=== PATIENT | female | born 1950 | race Caucasian/White ===

== ENCOUNTER 2024-07-31 12:59 | Emergency (ER) | payer MEDICARE ==
[~2024-07-31] VITALS: Ht 170.2 cm; Wt 96.2 kg
--- NOTE | 2024-07-31 14:33 | ERN ---
General Chief Complaint: Mechanical Fall Stated Complaint: FELL, POSSIBLE BROKEN TAILBONE Time Seen by MD: 13:15 Time Seen by Midlevel: 13:15 Source: patient History of Present Illness Initial Comments 74-year-old female presents to the ED for evaluation of coccyx pain onset 9 days ago. Patient reports she fell and landed on her coccyx and is concerned for possible broken tailbone. Patients specifically denies any focal weakness to bilateral lower extremities. Denies urinary/bowel incontinence. Allergies: Coded Allergies: No Known Allergies (Unverified Allergy, Unknown, 07/31/24) Past Medical History Past Medical History: COPD, High Cholesterol, Hypertension Past Surgical History: Other Surgical History Other: HIP, BACK , WRIST, ANKLE ROS Dictation Constitutional: For fall Negative for fever,chills, and weight loss Eyes: Negative for injury, pain,redness, and discharge ENT: Negative for injury,pain or swelling Cardiovascular: Negative for chest pain, palpitations, and edema Respiratory: Negative for shortness of breath, cough, and wheezing, Abdomen/GI: Negative for abdominal pain, nausea, vomiting, diarrhea, and constipation Back: Negative for injury and pain : Negative for injury, bleeding and discharge MS/Extremity: Coccyx pain Negative for injury and deformity Skin: Negative for rash, and discoloration Neuro: Negative for headache, weakness, numbness, tingling, and seizure Psych: Negative for suicide ideation, homicidal ideation, and hallucinations Physical Exam Physical Exam Dictation General: awake, alert, NAD Head/Face: Normocephalic, atraumatic Eyes: PERRL, EOMI, vision at baseline ENT: oral cavity clear, TMs clear, no signs of infection Neck: Trachea midline, supple, no nuchal rigidity Cardiovascular: RRR, normal S1/S2, No MRGs, no JVD Respiratory: CTAB, no respiratory distress, No rales or wheezes Abdomen: Soft, non-tender, non-distended, normal bowel sounds, no guarding or rebound. Skin: Warm, dry, normal turgor, no rash MS/Extremity: Pulses equal, no cyanosis, neurovascular intact, FROM Neuro: COAx4, GCS 15, strength 5/5, CN 2-12 intact, normal cerebellar exam, normal gait, Psych: Normal behavior, mood, and affect normal MDM MDM: Differential diagnosis: Fall, contusion, fracture Previous outside records reviewed: Old ER visits. Need for hospitalization: Patient does not meet criteria for hospitalization. Need for emergency major/minor surgery: No Patient's prior external medical records from other ER visits were reviewed by me as indicated. Prior testing and results from previous visits were reviewed. Prior tests were taken into account with medical decision making and resource utilization, independent historian/historians were used to obtain complete medical history. I independently interpreted the test that were performed, results were reviewed by me and considered findings on radiology if ordered. Medical management and examination interpretation discussions were had by me with other qualified healthcare professionals as indicated for the patient's care. ED Course Orders Procedure Category Date Status Time Sacrum/Coccyx 2+Vws RAD 07/31/24 Resulted 13:15 Lumbar Spine 2-3vws RAD 07/31/24 Resulted 13:15 Vital Signs Date Time Temp Pulse Resp B/P (MAP) Pulse Ox O2 Delivery O2 Flow Rate FiO2 07/31/24 13:01 97.9 92 16 155/136 96 Room Air 0 [place] [address] [address] IMAGING REPORT Signed PATIENT: SILVIA CLAROS MR#: [id number] : 1950 SEX: F AGE: 74 LOCATION: [facility] ORDER 1316 STATUS: REG ER REPORT#: [id number] SERVICE 1315 REASON: fall ORDERING PHYSICIAN: BANG BAL PROCEDURE: SAC JOHN 2V - SACRUM/COCCYX 2+VWS SACRUM/COCCYX 2+VWS HISTORY: Status post fall COMPARISON: None TECHNIQUE: 3 images of sacrum and coccyx were obtained. 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 There is no acute displaced fracture or dislocation. Degenerative changes are seen. IMPRESSION: 1. Findings as described above. DICTATED BY: FLORINA NARVAEZ MD DATE: 07/31/24 1434 ELECTRONICALLY SIGNED BY: FLORINA NARVAEZ MD DATE: 07/31/24 1434 [place] [address] [address] IMAGING REPORT Signed PATIENT: SILVIA CLAROS MR#: [id number] : 1950 SEX: F AGE: 74 LOCATION: [facility] ORDER 15 STATUS: REG [facility] REPORT#: [id number] SERVICE 14 REASON: fall ORDERING PHYSICIAN: BANG BAL PROCEDURE: LUMB 2 3VW - LUMBAR SPINE 2-3VWS LUMBAR SPINE 2-3VWS HISTORY: Status post fall COMPARISON: None FINDINGS: 3 images of lumbar spine were obtained. There are bilateral hip prosthesis. There are degenerative changes of the lumbar spine spondylosis. There is straightening of normal lordotic curvature which may be related to muscle spasm or positioning. No loss of vertebral height is seen. No fracture or dislocation is seen. Degenerative changes are seen. IMPRESSION: 1. No fracture is seen. DJD. DICTATED BY: FLORINA NARVAEZ MD DATE: 07/31/241431 ELECTRONICALLY SIGNED BY: FLORINA NARVAEZ MD DATE: 07/31/241435 DX & DISP Disposition: Discharge Departure Impression: Primary Impression: Coccygeal contusion Condition: Stable Additional Instructions: Your sacral/coccyx x-ray is negative for any acute injury. I also performed a lumbar x-ray of your spine which does not show any fracture. Please follow up with your primary care doctor and orthopedic surgeon for outpatient evaluation. You may take Tylenol and Motrin for pain as needed. Return to the ER for any new or worsening symptoms Time of Disposition: 15:38 I have reviewed, & agreed with my scribe's, documentation. (Entered by Patrice Hernández, acting as a scribe for JOSE Bal) I have reviewed the case, and I agree with, Diagnosis and Plan I performed the substantive portion of the visit. I have reviewed and personally made and approve the management plan that is documented in the note by myself or the JUWAN. I acknowledge for responsibility for the patient's management plan. I personally scribed for BANG BAL ([email or web address]) on 07/31/24 at 14:33. Electronically submitted by Patrice Hernández ([email or web address]). BANG BAL Jul 31, 2024 14:33
--- NOTE | 2024-07-31 14:36 | HMCIMG ---
LUMBAR SPINE 2-3VWS HISTORY: Status post fall COMPARISON: None FINDINGS: 3 images of lumbar spine were obtained. There are bilateral hip prosthesis. There are degenerative changes of the lumbar spine spondylosis. There is straightening of normal lordotic curvature which may be related to muscle spasm or positioning. No loss of vertebral height is seen. No fracture or dislocation is seen. Degenerative changes are seen. IMPRESSION: 1. No fracture is seen. DJD.
--- NOTE | 2024-07-31 14:36 | HMCIMG ---
SACRUM/COCCYX 2+VWS HISTORY: Status post fall COMPARISON: None TECHNIQUE: 3 images of sacrum and coccyx were obtained. 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 There is no acute displaced fracture or dislocation. Degenerative changes are seen. IMPRESSION: 1. Findings as described above.
[2024-07-31 15:46] VITALS: BP 163/80; PULSE 96; RESP 17; TEMP 98; O2SAT 95
== END 2024-07-31 16:02 | disposition home or self-care (01) ==
LOC: EDH 12:59
DX: S30.0XXA Contusion of lower back and pelvis, initial encounter (principal); J44.9 Chronic obstructive pulmonary disease, unspecified; E78.00 Pure hypercholesterolemia, unspecified; I10 Essential (primary) hypertension; W18.39XA Other fall on same level, initial encounter; Y93.89 Activity, other specified; Y92.89 Other specified places as the place of occurrence of the external cause; Y99.8 Other external cause status
CPT/HCPCS: 72100; 72220; 99284